=== PATIENT | female | born 1950 | race Caucasian/White ===

== ENCOUNTER 2019-06-28 14:56 | Emergency (ER) | payer MEDICARE ==
[~2019-06-28] VITALS: Ht 154.9 cm; Wt 62.6 kg
[2019-06-28 15:11] VITALS: BP_SYST 167
--- NOTE | 2019-06-28 15:30 | NUR ---
Patient to ER bed 4 to gown for evaluation. Side rails up.
--- NOTE | 2019-06-28 15:35 | NUR ---
ER at bedside examining patient.
--- NOTE | 2019-06-28 15:40 | NUR ---
PT C/O EPIGASTRIC PAIN AND NAUSEA X 4 HRS PRIOR TO ED ARRIVAL.PT DENIES SIGNIFICANT MED. PT DENIES CP.
--- NOTE | 2019-06-28 15:45 | NUR ---
# 20 gauge angiocath placed to LFA. Use of asceptic technique. Opsite placed over site. Blood return noted. Blood for lab drawn from site. Flushed with 10 cc of normal saline. No evidence of infiltration noted. Patient tolerated well.
--- NOTE | 2019-06-28 15:50 | NUR ---
PT MEDICATED, PT TOLERATED WELL.
[2019-06-28] MEDS ORDERED: DIPHENHYDRAMINE INJ 50 MG/ML VIAL IVP ONE (16:00)
[2019-06-28] MEDS ORDERED: MORPHINE 4 MG/ML INJ. SYRINGE IVP ONE (16:00)
--- NOTE | 2019-06-28 16:00 | NUR ---
Patient transported to radiology via GURNEY, accompanied by CT STAFF.
--- NOTE | 2019-06-28 16:10 | NUR ---
Returned from radiology, back to [facility].
[2019-06-28 16:12] LABS: BASOPHILS % (AUTO) 0.2 % (0.0-2.0); EOSINOPHILS % (AUTO) 0.3 % (0.0-4.0); HEMATOCRIT 41.4 % (36-48); HEMOGLOBIN 13.6 g/dL (12.0-16.0); LYMPHOCYTES # (AUTO) 0.9 K/uL (1.0-5.5); LYMPHOCYTES % (AUTO) 10.1 % (20.5-51.5); MEAN CORPUSCULAR HEMOGLOBIN 32 pg (27-31); MEAN CORPUSCULAR HGB CONC 33 % (32-36); MEAN CORPUSCULAR VOLUME 98 fL (79.0-98.0); MONOCYTES # (AUTO) 0.3 K/uL (0.0-1.0); MONOCYTES % (AUTO) 3.4 % (1.7-9.3); NEUTROPHILS # (AUTO) 7.5 K/uL (1.8-7.7); PLATELET COUNT (AUTO) 253 K/uL (130-430); RED BLOOD CELL COUNT(AUTO) 4.25 MIL/uL (4.2-6.2); RED CELL DISTRIBUTION WIDTH 13.2 % (9.0-15.0); WHITE BLOOD COUNT (AUTO) 8.7 K/uL (4.8-10.8)
[2019-06-28 17:20] LABS: CALCIUM 8.8 mg/dL (8.4-11.0); CREATININE 0.57 mg/dL (0.55-1.30); POTASSIUM 3.5 mmol/L (3.5-5.1); PROTHROMBIN TIME 9.9 SECS (9.5-12.5)
--- NOTE | 2019-06-28 17:20 | NUR ---
PT RESTING NO ACUTE DISTRESS NOTED.
[2019-06-28 17:24] LABS: ALBUMIN 3.9 g/dL (3.4-4.8); TOTAL BILIRUBIN 0.3 mg/dL (0.0-1.0)
[2019-06-28 18:14] LABS: BILIRUBIN,URINE NEGATIVE (NEGATIVE); CLARITY/URINE CLEAR (CLEAR); COLOR,URINE YELLOW (YELLOW); GLUCOSE,URINE NEGATIVE (NEGATIVE); KETONES,URINE 2+ (NEGATIVE); LEUKOCYTE ESTERASE ,URINE NEGATIVE (NEGATIVE); NITRITE, URINE NEGATIVE (NEGATIVE); PH,URINE 7.5 (5.0-8.0); PROTEIN URINE NEGATIVE (NEGATIVE); UROBILINOGEN,URINE 0.2 (0.2-1.0)
[2019-06-28 18:18] LABS: BLOOD, URINE TRACE (NEGATIVE)
[2019-06-28 18:22] LABS: BACTERIA,URINE FEW /HPF (None Seen); MUCUS,URINE None Seen /LPF (None Seen); WBC,URINE 0-3 /HPF (0-3)
[2019-06-28] MEDS ORDERED: NACL 0.9% 1,000 ML IV ONE (18:45)
[2019-06-28] MEDS ORDERED: MORPHINE 2 MG/ML INJ. SYRINGE IVP ONE (18:45)
[2019-06-28] MEDS ORDERED: MAG HYDROX/AL HYDROX/SIMETH 30 ML, DICYCLOMINE HCL 20 MG, LIDOCAINE VISCOUS 2% 15ML (PO... PO ONE ×3 (18:45)
[2019-06-28] MEDS ORDERED: PANTOPRAZOLE SODIUM 40 MG/VIAL (PROTONIX) IVP ONE (18:45)
--- NOTE | 2019-06-28 19:00 | NUR ---
Pt medicated for increasd pain.Pt tolerated well.
--- NOTE | 2019-06-28 19:10 | NUR ---
Pt endorsed to Joaquín GUPTA
[2019-06-28] MEDS ORDERED: ONDANSETRON HCL 4 MG/2 ML VIAL IVP ONE (19:15)
--- NOTE | 2019-06-28 20:30 | NUR ---
Gave telephone report to ER Charge Dewey, Accepting Dr. Diana. Med Transport ETA 5 - 10 min
--- NOTE | 2019-06-28 20:56 | NUR ---
Patient to be transferred to [facility] ER. Is being transferred due to higher level of care. Receiving facility has accepting physician and available space. ER physician has signed transfer form. Patient or responsible constitution party has agreed to transfer and signed form. Patient belongings inventoried and will be sent with patient. Copy of nursing notes, lab reports, EKG, Physicians Orders and X-rays to be sent with patient. Report called to dye house wheel operator Simon at receiving facility. Receiving physician is Dr. Diana. [facility] ambulance service is now here for transporting Pt
[2019-06-28 21:00] VITALS: BP_SYST 136
== END 2019-06-28 21:00 | disposition short-term general hospital (02) ==
LOC: SED 14:56
DX: K44.9 Diaphragmatic hernia without obstruction or gangrene (principal); K57.30 Diverticulosis of large intestine without perforation or abscess without bleeding
CPT/HCPCS: 36415; 71045; 74176; 80053; 81000; 83605; 83690; 84484; 85025; 85610; 87040; 93005; 96361; 96374; 96375; 96376; 99285; C9113; J1200; J2001; J2270 ×2; J2405; J7030